=== PATIENT | female | born 1930 | race Caucasian/White ===

== ENCOUNTER → 2016-11-20 | Outpatient (CLI) | payer MEDICARE, BC ==
[~2016-11-20] MED LIST: ARICEPT5 MG PO; ASPIRIN EC81 MG PO; BACTROBAN N1 GM/TUBE TOP; DITROPAN5 MG PO; K-TAB ER20 MEQ PO; LASIX20 MG PO; LIPITOR80 MG PO; LOPRESSOR25 MG PO; NORVASC10 MG PO; PRILOSEC20 MG PO; PROAIR HFA8.5 GM INH; TYLENOL325 MG PO; VITAMIN D3 COM1 EACH PO; [UNRECOGNIZED DRUG - OTHER] OPHTH
== END | disposition disaster alternative care site (69) ==
LOC: GRAD 12:52
DX: I65.29 Occlusion and stenosis of unspecified carotid artery (principal); I65.21 Occlusion and stenosis of right carotid artery
CPT/HCPCS: Q9967

== ENCOUNTER 2016-12-07 10:00 | Inpatient (IN) | payer MEDICARE, BC ==
[~2016-12-07] VITALS: Ht 165.1 cm; Wt 90.5 kg
--- NOTE | ~2016-12-07 | OR ---
[facility] AGE: 86 Y [address] ROOM: [place] [address] [facility] ADMIT DATE: 12/14/2016 OR/Procedure Report DISCHARGE DATE: FAMILY PHYSICIAN: Shivam Plaza MD ATTENDING PHYSICIAN: AUSTYN ALEXIS SURGEON: Austyn Alexis MD VAMP THROATER: DATE OF PROCEDURE: 12/14/2016 PREOPERATIVE DIAGNOSIS: High-grade right internal carotid artery stenosis. POSTOPERATIVE DIAGNOSIS: High-grade right internal carotid artery stenosis. PROCEDURE: Right carotid endarterectomy with bovine pericardial patch. COMMERCIAL ENERGY RATER: Chante Garcia, nurse practitioner. She provided retraction as well as wound closure. ANESTHESIA: General. ESTIMATED BLOOD LOSS: 100 mL. OPERATIVE FINDINGS: High-grade heavily calcified lesion, near occlusive. DESCRIPTION OF PROCEDURE: The patient was brought to the operating room, placed supine on the operating table, prepped and draped in a sterile manner. Preop time-out was performed. The patient received preoperative antibiotics. We made a standard incision along the anterior border of the right sternocleidomastoid, transected the platysma, dissected out the internal jugular, identified the facial vein, which was ligated and transected. Dissected out the common, external, and internal carotid arteries. We gave 5000 units of heparin. We clamped on all 3 major arteries and performed a back pressure on the internal, which showed adequate pressure. We then made an arteriotomy from the common to the internal. We then removed the plaque in its entirety. We then patched it with a bovine pericardial patch using two 6- 0 Bonesteel running sutures. We then removed the clamps from the external and the common, waited 10 heartbeats, and removed the clamp from the internal. Any bleeding sites were repaired with interrupted Prolene. Hemostasis was achieved with protamine reversal as well as thrombin locally in the wound. Deep layers were closed with 2-0 and 3-0 Vicryl. Skin was closed with running 4-0 Monocryl. The patient tolerated the procedure well and transferred to recovery room and up to the floor. [facility] AGE: 86 Y [address] ROOM: [place] [address] LOCATION: [facility] ADMIT DATE: 12/14/2016 OR/Procedure Report DISCHARGE DATE: FAMILY PHYSICIAN: Shivam Plaza MD ATTENDING PHYSICIAN: AUSTYN ALEXIS AUSTYN ALEXIS MD FKM/modl /[id number] d: 12/14/162022 t: 12/21/16 1720, OPERATIVE SUMMARY
--- NOTE | ~2016-12-07 | PUL ---
PATIENT'S NAME: KT STINSON [facility] AGE: 86 Y [address] ROOM: [address] [place] [address] LOCATION: GPCU ADMIT DATE: 12/14/2016 Pulmonary DISCHARGE DATE: 12/20/2016 FAMILY PHYSICIAN: Shivam Plaza MD ATTENDING PHYSICIAN: Austyn Lazcano NAME OF PROCEDURE: Bedside Spirometry DATE OF PROCEDURES: December 18, 2016 TECH: Hanh, SNAKE CHARMER REASON FOR EXAM: Shortness of breath PROCEDURES PERFORMED: Spirometry without bronchodilator assessment. RESULTS: Multimedia Production Assistant comment, the patient is slightly confused and had difficulty with understanding the maneuvers. Spirometry showed FVC was 0.98 L, 39% of predicted; FEV1 was 0.76 L, 41% of predicted. FEV1/FVC was 78%. IMPRESSION: Both FEV1 and FEC and decreased with normal FEV1/FVC ratio signifying no airflow obstruction, but further assessment with lung volume measurements should be done to rule out restrictive changes. MD MARTHA ALMONTE/debby /[id number] dtt: 12/25/16 1426 SUSAN MEENAKSHI dtd: 12/22/16 0811
--- NOTE | ~2016-12-07 | DS ---
PATIENT'S NAME: KT STINSON [facility] AGE: 86 Y [address] ROOM: [address] [place], [place] [address] LOCATION: GPCU ADMIT DATE: 12/14/2016 Discharge Summary DISCHARGE DATE: 12/20/2016 FAMILY PHYSICIAN: Shivam Plaza MD ATTENDING PHYSICIAN: Austyn Lazcano FINAL DIAGNOSIS: Right internal carotid artery high-grade stenosis. SECONDARY DIAGNOSES: 1. Acute hypoxic respiratory failure. 2. Acute diastolic congestive heart failure. 3. Essential hypertension. 4. Chronic obstructive pulmonary disease with nocturnal hypoxia. 5. Obesity. 6. History of aortic valve replacement. 7. History of coronary artery disease. PROCEDURES: Right carotid endarterectomy with bovine patch on 12/14/[address] Lazcano. CONSULTATIONS: Hospitalist for medical management. HOSPITAL COURSE: This is an 86-year-old female admitted to [facility] on 12/14/2016 after elective right carotid endarterectomy with bovine patch. The patient with known asymptomatic high-grade right internal carotid artery stenosis diagnosed on CT angiogram. See the patient history and physical for full patient details. The patient tolerated the procedure well and woke up in the operating room without neurological deficits. While in recovery, the patient complained of difficulty breathing and received DuoNeb treatment. After recovery, she was admitted to PCU for monitoring of telemetry, vitals, labs, oxygen saturation, surgical site, pain management, medication administration, and nursing assistance. Hospitalists were consulted for medication management. The patient was placed on BiPAP on PCU for hypoxia. Chest x-ray and 2D echo also obtained for hypoxia. The chest x-ray impression cardiomegaly and mild pulmonary venous hypertension. No evidence of acute pulmonary edema. Doubt pneumonia although the left diaphragm is not particularly well seen. Echo impression hyperdynamic LV systolic function. Estimated left ventricular ejection fraction is 70% to 75%. Normal right ventricle structure and function. [id number] mitral valve stenosis. Well-seated bioprosthetic aortic valve with normal velocities and no appreciable regurgitation. Mildly dilated left atrium with evidence of elevated left ventricular filling pressures. Moderate concentric left ventricular hypertrophy. On postop day #1, the patient neurologically intact without deficits and neck incision clean, dry, and intact without hematoma. The patient continued on 6 L per nasal cannula. She is encouraged to use PATIENT'S NAME: KT STINSON [facility] AGE: 86 Y [address] ROOM: [address] [place], [place] [address] LOCATION: GPCU ADMIT DATE: 12/14/2016 Discharge Summary DISCHARGE DATE: 12/20/2016 FAMILY PHYSICIAN: Shivam Plaza MD ATTENDING PHYSICIAN: Austyn Lazcano incentive spirometry and CPAP at night was initiated. She also received albumin, Bumex, and potassium replacement. On postop day #2, a repeat chest x- ray PA and lateral was obtained. Impression deeper inspiration with clear lungs. Suspect some degree of COPD with parenchymal scarring. Changes of previous cardiac surgery. No congestive heart failure or pneumonia. The patient was started on IV Lasix drip. She was placed on a fluid restriction. Tate catheter was inserted for strict intake and output. On postop day #3, the patient continued to have improvement in oxygen demands. On postop day #4, her Lasix drip was discontinued and she was started on p.o. Lasix. PT and OT began working with the patient. On postop day #5, her Tate was discontinued and the patient continued with breathing treatments, DuoNeb, and albuterol. An overnight trend ox and bedside spirometry were ordered. The patient was up ambulating in the cooper without difficulty or shortness of breath. On postop day #6, the patient was found in a stable condition to be discharged home. She was setup with home oxygen. Trend ox results are as followed, the patient has evidence of significant nocturnal hypoxia and would qualify for supplemental oxygen as per Medicare criteria. However, because of severity of nocturnal hypoxia with elevated desaturation index, a sleep study would be recommended at this time. Bedside spirometry results are as followed, both FEV1 and FVC decreased with normal FEV1/FVC ratio signifying no airflow obstruction, but further assessment with lung volume measurements should be done to rule out restrictive changes. FVC is 0.98 L or 39% of predicted. FEV1 was 0.76 L or 41% of predicted. FEV1/FVC was 78%. DISCHARGE ORDERS: The patient is to be discharged to home with the assistance of Home Health. She is to continue on her diet as previous. She is to avoid heavy-lifting or driving for 2 weeks. She is to follow up with Chante Garcia APRN in [facility] on 01/02/2017. She is to follow up with Dr. Pinto at [facility] on 01/03/2017. She is to leave her incision open to air. She is to report any signs or symptoms of infection including redness, swelling, fevers, drainage, or chills. She is to report any symptoms consistent with TIA or stroke. DISCHARGE MEDICATIONS: 1. Norvasc 10 mg p.o. daily. 2. Aricept 5 mg p.o. every night at bedtime. 3. Aspirin 81 mg p.o. daily. 4. Lipitor 40 mg p.o. daily at bedtime. 5. HypoTears eyedrops 1 to 2 drops ophthalmic everyday as needed dry eyes. 6. Lasix 40 mg p.o. daily. 7. Lasix 20 mg p.o. daily at noon. 8. Lopressor 25 mg p.o. twice daily. 9. Bactroban nasal 2% ointment topical application 3 times daily to affected areas. 10. Prilosec 20 mg p.o. daily. PATIENT'S NAME: KT STINSON [facility] AGE: 86 Y [address] ROOM: [place] [address] [facility] AD[facility]: 12/14/2016 Discharge Summary DISCHARGE DATE: 12/20/2016 FAMILY PHYSICIAN: Shivam Plaza MD ATTENDING PHYSICIAN: Austyn Lazcano 11. Ditropan 5 mg p.o. twice daily. 12. Potassium chloride 20 mEq p.o. daily. 13. Tylenol 325 mg p.o. every 4 hours as needed pain. 14. Vitamin D3 tablets p.o. daily. 15. Albuterol 2 puffs to take 4 times daily as needed every 2 hours shortness of breath. DISPOSITION: The patient is discharged home in stable condition. She is to follow discharge orders as prescribed. Education about discharge including oxygen, home health, medications, prescriptions, wound care, diet , activity, and followup appointments given to the patient. The patient verbalized understanding of the plan and had no further questions or concerns. She is to follow discharge orders as prescribed. CHAN ROBLEDO MD TO/sandra /[id number] d: 12/28/16 0339 t: 12/29/16 1103, DISCHARGE SUMMARY
--- NOTE | ~2016-12-07 | PUL ---
PATIENT'S NAME: KT STINSON [facility] AGE: 86 Y [address] ROOM: [address] [address] LOCATION: GPCU ADMIT DATE: 12/14/2016 Pulmonary DISCHARGE DATE: 12/20/2016 FAMILY PHYSICIAN: Shivam Plaza MD ATTENDING PHYSICIAN: Austyn Lazcano NAME OF PROCEDURE: Overnight Pulse Oximetry DATE OF PROCEDURE: December 19, 2016 REASON FOR EXAM: Nocturnal hypoxemia RESULTS: The procedure was performed on room air. The recording time was 9 hours and 9 minutes, with a total valid sampling time of 9 hours and 9 minutes. Highest pulse was 97, lowest pulse was 70, with a mean pulse of 83. Highest SpO2 was 95%, lowest SpO2 was 77%, with a mean SpO2 of 87.2%. The three longest continuous times with saturation below 88% where, 47 minutes and 32 seconds, 31 minute and 48 seconds, and 16 minutes and 8 seconds. The desaturation event index was elevated at 13.4. IMPRESSION: The patient has evidence of significant nocturnal hypoxia and would qualify for supplemental oxygen as per Medicare criteria. However because of the severity of nocturnal hypoxia with an elevated desaturation event index a sleep study would be recommended at this time. MD MARTHA ALMONTE/debby /[id number] dtt: 12/25/16 1429 SUSAN MEENAKSHI dtd: 12/22/16 0944
--- NOTE | ~2016-12-07 | ECHO ---
Transthoracic Echocardiography Report (TTE) Demographics Patient Name KT STINSON Date of Study 12/14/2016 E Patient Number [id number] Visit Number [id number] Date of 1930 Room Number [address] Gender Female Number Age 86 year(s) Referring Neno Zaman MD Metal Drawer Kathy Davis RDCS, Physician RVT, RDMS, DELI DEPARTMENT MANAGER Physician Interpreting Mili Desai MD Head Still Operator Physician Supervising Ordering Gebremicheal Kyler SWANN/MLP Physician Nurse Stress Professional Driver Conclusions Summary Very technically challenging exam due to lung interference and suboptimal positioning. Hyperdynamic LV systolic function. The estimated left ventricular ejection fraction is 70-75%. Normal right ventricle structure and function. Mild to moderate mitral valve stenosis. The 21 mm Araujo bioprosthetic valve is suboptimally visualized. Well seated bioprosthetic aortic valve with normal velocities and no appreciable regurgitation. Mildly dilated left atrium with evidence of elevated left ventricular filling pressures. Moderate concentric left ventricular hypertrophy. Procedure Type of Study TTE procedure:2D Echocardiogram, M-Mode, Doppler , Color Doppler. Procedure Date Date: 12/14/2016 Start: 02:54 PM Study Location: Inpatient Portable Technical Quality: Poor visualization due to lung interference. Indications:Dyspnea/SOB. Additional Indications:CHF, AVR Appropriate Use Criteria: 9 Patient Status: Routine HR: 71 bpm BP: 134/53 mmHg M-Mode/2D Measurements LV Diastolic Dimension: 3.37 cm LV Systolic Dimension: 1.76 cm LV Septum Diastolic: 1.3 cm LV PW Diastolic: 1.26 cm Cardiac Output: 6.01 l/min LA volume: 75 ml RV Diastolic Dimension: 2.47 cm LVOT: 1.8 cm EF Estimated: 70 % LVOT VTI: 33.3 cm LV Stroke volume: 84.7 ml RV Mid: 2.2 cm RV Length: 6.3 cm TAPSE: 2.1 cm Doppler Measurements AV Peak Velocity: 2.24 m/s MV Peak E-Wave: 0.9 m/s AV Peak Gradient: 20.07 mmHg MV Peak A-Wave: 1.51 m/s AV Mean Gradient: 11 mmHg MV E/A Ratio: 0.59 LVOT Peak Velocity: 1.32 m/s MV P1/2t: 155 msec MV Deceleration Time: 581 msec E' Lateral Velocity: 0.05 m/s PV Peak Velocity: 0.93 m/s PV Peak Gradient: 3.46 mmHg A' Lateral Velocity: 0.11 m/s Findings Left Ventricle Hyperdynamic left ventricular systolic function with paradoxical septal motion due to prior open heart surgery. The left ventricle is normal in size . Diastolic assessment reveals Grade I diastolic dysfunction. Moderate concentric left ventricular hypertrophy. E/e' of 18 is consistent with elevated left ventricular filling pressures. Right Ventricle Normal right ventricle structure and function. Left Atrium The left atrium is mildly dilated by LA volume index measurement. Right Atrium Normal right atrial size. Mitral Valve Severe calcification of the mitral valve. Severe mitral annular calcification. Mild to moderate mitral valve stenosis. The mean gradient is 5 mmHg. The area is (1.42 - 1.67 cm2.). Aortic Valve The 21 mm Araujo bioprosthetic valve is suboptimally visualized. It appears well seated with normal velocity parameters. There is no appreciable regurgitation. Tricuspid Valve The tricuspid valve is not well visualized. Cannot estimate pulmonary pressures due to insufficient tricuspid regurgitant jet. Pulmonic Valve Pulmonic valve is not well seen. Pericardial Effusion No evidence of pericardial effusion. Miscellaneous Suboptimal subcostal window to evaluate the IVC and interatrial septum. Pleural Effusion No evidence of pleural effusion. Signature dtt: VEENA RAPP dtd: 12/14/16 8011 Physician Self Edit
[~2016-12-07 10:00] MED LIST changes: -PROAIR HFA8.5 GM INH; -VITAMIN D3 COM1 EACH PO
[2016-12-07] MEDS ORDERED: VITAMIN D3 COM1 EACH PO (10:01)
[2016-12-14 06:33] LABS: BASOPHIL # 0.1 K/uL (0.0-0.2); BASOPHIL % 0.7 %; EOSINOPHIL # 0.2 K/uL (0.0-0.5); EOSINOPHIL % 2.1 %; HEMATOCRIT 38.1 % (30.0-46.0); HEMOGLOBIN 12.4 g/dL (10.0-15.0); IMMATURE GRANULOCYTE % 0.1 %; LYMPHOCYTE # 4.7 K/uL (0.8-4.0); LYMPHOCYTE % 55.3 %; MCH 28.3 pg (27.0-34.0); MCHC 32.5 gm/dL (32.0-36.5); MONOCYTE # 0.7 K/uL (0.0-1.0); MONOCYTE % 8.1 %; MPV 10.5 fl (9.4-12.4); NEUTROPHIL # (ANC) 2.9 K/uL (1.8-7.8); NEUTROPHIL % 33.7 %; NRBC % 0 /100WBC (0-0.00); PLATELET COUNT 190 K/uL (150-450); RBC 4.38 M/uL (3.00-5.00); RDW-CV 15.6 % (11.9-14.6); WBC 8.5 K/uL (4.0-11.0)
[2016-12-14 06:50] LABS: ALBUMIN 2.9 gm/dL (3.5-5.0); ANION GAP 11.7 (10.0-19.0); CALCIUM 8.4 mg/dL (8.5-10.5); CREATININE 1.2 mg/dL (0.5-1.1); POTASSIUM 3.7 mMol/L (3.7-5.1); TOTAL BILIRUBIN 0.7 mg/dL (0.0-1.5)
--- NOTE | 2016-12-14 16:25 | NUR ---
Significant Event: Alert and disoriented to time. Forgetful. [id number]. R) artline intact with good wave foarm. P-60s. Afebrile. Currently on Hiflow at 75% FIO2. Basline patient is on room air. Tachypnic at times. L) AC infusing d51/2 with 20meq of KCL running at 75ml/hr. 1 Large incotinence since surgery. Has not been up since surgery yet. 1-2+ generalized edema. thready diastal pulses. Prophylaytic Anef. R) carotid site covered with primapore, c/d/i. Family at [facility].
[2016-12-14 16:28] LABS: ANION GAP 10.3 (10.0-19.0); CREATININE 1.3 mg/dL (0.5-1.1); POTASSIUM 4.3 mMol/L (3.7-5.1)
[2016-12-14 18:11] LABS: ALBUMIN 2.9 gm/dL (3.5-5.0); MAGNESIUM 2.2 mg/dL (1.8-2.6); PHOSPHORUS 3.4 mg/dL (2.5-4.9)
[2016-12-15 04:02] LABS: BASOPHIL % 0.1 %; HEMATOCRIT 37.6 % (30.0-46.0); HEMOGLOBIN 11.9 g/dL (10.0-15.0); IMMATURE GRANULOCYTE % 0.2 %; LYMPHOCYTE # 4.3 K/uL (0.8-4.0); LYMPHOCYTE % 34.2 %; MCHC 31.6 gm/dL (32.0-36.5); MCV 88.5 fl (83.0-98.0); MONOCYTE # 0.5 K/uL (0.0-1.0); MONOCYTE % 4.3 %; MPV 11.3 fl (9.4-12.4); NEUTROPHIL # (ANC) 7.7 K/uL (1.8-7.8); NEUTROPHIL % 61.2 %; NRBC % 0 /100WBC (0-0.00); PLATELET COUNT 167 K/uL (150-450); RBC 4.25 M/uL (3.00-5.00); RDW-CV 15.5 % (11.9-14.6); WBC 12.5 K/uL (4.0-11.0)
[2016-12-15 04:17] LABS: ALBUMIN 2.7 gm/dL (3.5-5.0); ANION GAP 10.3 (10.0-19.0); CALCIUM 7.9 mg/dL (8.5-10.5); MAGNESIUM 2.2 mg/dL (1.8-2.6); PHOSPHORUS 3.3 mg/dL (2.5-4.9); POTASSIUM 4.3 mMol/L (3.7-5.1)
--- NOTE | 2016-12-15 06:21 | NUR ---
Patient drowsy oriented to self and place but not time. Will wake up to voice. 2 assist to bedside commode. VSS except on 6L NC. Lungs clear/diminished. Bowel sounds hypoactive. Incont of urine. IV LT AC and Rt hand saline locked. No complaints. ART line DC'd. Dressing CDI. NSR to bradycardia at times. Possible home today.
--- NOTE | 2016-12-15 16:41 | NUR ---
Introduced self and role of care management to pt. She stated her Jose Manuel and daughter left to get some food. She lives in [place] with her and is up with a walker. She states he helps her out most of the time by setting up her meds, etc. At this time she plans on returning home but if something different will need to talk with her family. WIll continue to follow.
--- NOTE | 2016-12-15 17:16 | NUR ---
Significant Event: Alert and disoriented to time. Forgetful. VSS. Patient fluctuates from 4-6L throughout the day. Currently on 5L NC. L) AC and R) hand IVs saline locked. PAtient recived albumin IV x1 and will get Bumex 1mg IVP at 1730. Patient denies SOB. Up with 1A/walker. R) carotid site open to air, no complications. Pleasant and cooperative with cares. Family at bedside.
[2016-12-15 21:05] LABS: ALBUMIN 3.2 gm/dL (3.5-5.0); ANION GAP 10.6 (10.0-19.0); CREATININE 1.2 mg/dL (0.5-1.1); MAGNESIUM 2.2 mg/dL (1.8-2.6); PHOSPHORUS 2.9 mg/dL (2.5-4.9); POTASSIUM 3.6 mMol/L (3.7-5.1)
--- NOTE | 2016-12-16 01:18 | NUR ---
Significant Event:A/Ox2. Disoriented to time and forgetful. Per family this is baseline. Neuro assessments wnl. Oxygen remains at 5L/NC. Patient has periods of apnea when sleeping. Would benefit from a sleep study or overnight trend ox. Transfers 1 assist with walker and GB. K+3.4 at 2100 replaced with 40meq PO. Follow up:Continue to monitor respiratory status and wean oxygen.
--- NOTE | 2016-12-16 05:50 | NUR ---
Significant Event: ALERT AND DISORIENTED AT TIMES. FORGETFUL BUT IS ABLE TO FOLLOW DIRECTIONS APPROPRIATELY. VSS. PATIENTS O2 RANGES FROM 4-6L. PATIENT HAS BEEN ON 6L ALL NIGHT, POSSIBLE SLEEP APNEA. LUNGS CLEAR/DIMINISHED. BOWEL SOUNDS HYPOACTIVE. INCONT OF URINE FREQUENTLY. IV L)AC AND R)HAND BOTH SL. PATIENT HAD ALBUMIN INFUSION x1 AND BUMEX ON 12/15/16. K+ WAS 3.6 SO 40mEq ORAL K+ WAS GIVEN. 1 ASST WITH WALKER/GAIT BELT TO BATHROOM. R) CAROTID SITE OPEN TO AIR. NO COMPLICATIONS. Follow up: WILL CONTINUE TO MONITOR LABS AND INCREASED O2 NEEDS.
[2016-12-16 06:42] LABS: BASOPHIL # 0.1 K/uL (0.0-0.2); BASOPHIL % 0.5 %; EOSINOPHIL # 0.1 K/uL (0.0-0.5); HEMATOCRIT 37.4 % (30.0-46.0); HEMOGLOBIN 12.2 g/dL (10.0-15.0); IMMATURE GRANULOCYTE % 0.1 %; LYMPHOCYTE # 4.1 K/uL (0.8-4.0); LYMPHOCYTE % 44.4 %; MCH 28.4 pg (27.0-34.0); MCHC 32.6 gm/dL (32.0-36.5); MCV 87.2 fl (83.0-98.0); MONOCYTE # 0.9 K/uL (0.0-1.0); MONOCYTE % 9.2 %; MPV 11.1 fl (9.4-12.4); NEUTROPHIL # (ANC) 4.1 K/uL (1.8-7.8); NEUTROPHIL % 44.8 %; NRBC % 0 /100WBC (0-0.00); PLATELET COUNT 165 K/uL (150-450); RBC 4.29 M/uL (3.00-5.00); RDW-CV 15.6 % (11.9-14.6); WBC 9.2 K/uL (4.0-11.0)
[2016-12-16 06:52] LABS: ALBUMIN 3.1 gm/dL (3.5-5.0); ANION GAP 9.7 (10.0-19.0); CALCIUM 8.1 mg/dL (8.5-10.5); MAGNESIUM 2.3 mg/dL (1.8-2.6); PHOSPHORUS 2.5 mg/dL (2.5-4.9); POTASSIUM 3.7 mMol/L (3.7-5.1)
--- NOTE | 2016-12-16 20:12 | NUR ---
Significant Event: Patient is alert/oriented x3, very forgetful. Vital signs stable. Weaned down to 5L from 6L. Lasix drip started at 5 mg/hr. Tate catheter in place now. Patient denies any pain. Neuro checks have been within normal limits. Right CEA site is healing well. Follow up: Continue to monitor respiratory status.
[2016-12-17 03:31] LABS: BASOPHIL # 0.1 K/uL (0.0-0.2); BASOPHIL % 0.6 %; EOSINOPHIL # 0.1 K/uL (0.0-0.5); EOSINOPHIL % 1.4 %; HEMOGLOBIN 13.1 g/dL (10.0-15.0); IMMATURE GRANULOCYTE % 0.2 %; LYMPHOCYTE # 4.4 K/uL (0.8-4.0); LYMPHOCYTE % 47.3 %; MCH 28.2 pg (27.0-34.0); MCHC 32.8 gm/dL (32.0-36.5); MCV 86.2 fl (83.0-98.0); MONOCYTE # 0.8 K/uL (0.0-1.0); MONOCYTE % 8.5 %; MPV 11.4 fl (9.4-12.4); NEUTROPHIL # (ANC) 3.9 K/uL (1.8-7.8); NRBC % 0 /100WBC (0-0.00); PLATELET COUNT 173 K/uL (150-450); RBC 4.64 M/uL (3.00-5.00); RDW-CV 15.6 % (11.9-14.6); WBC 9.3 K/uL (4.0-11.0)
[2016-12-17 03:44] LABS: ANION GAP 9.3 (10.0-19.0); CALCIUM 8.4 mg/dL (8.5-10.5); POTASSIUM 3.3 mMol/L (3.7-5.1); TOTAL BILIRUBIN 1.3 mg/dL (0.0-1.5); TOTAL PROTEIN 7.3 g/dL (6.0-8.4)
--- NOTE | 2016-12-17 06:04 | NUR ---
Significant Event: Patient is alert and oriented. VSS on 5L. Lasix drip continues at 5. Potassium level 3.3. Potassium cloride 40 meq given x1. Check renal and mg at 0800 and call MD with results. Edema decreasing to LE. Patient calm and cooperative. Follow up:
[2016-12-17 08:26] LABS: ALBUMIN 3.1 gm/dL (3.5-5.0); ANION GAP 9.8 (10.0-19.0); CALCIUM 8.5 mg/dL (8.5-10.5); MAGNESIUM 2.3 mg/dL (1.8-2.6); PHOSPHORUS 3.5 mg/dL (2.5-4.9); POTASSIUM 3.8 mMol/L (3.7-5.1)
--- NOTE | 2016-12-17 19:53 | NUR ---
Significant Event: Patient is alert/oriented x3, forgetful at times. O2 weaned down to 4L now. Lasix drip continues at 5 mg/hr. Tate in place with 1775 mL UOP. Denies any pain. 1500 mL fluid restriction. Follow up: Continue to wean O2.
[2016-12-18 04:24] LABS: HEMATOCRIT 40.1 % (30.0-46.0); HEMOGLOBIN 13.3 g/dL (10.0-15.0); MCH 28.2 pg (27.0-34.0); MCHC 33.2 gm/dL (32.0-36.5); MCV 85.1 fl (83.0-98.0); MPV 10.7 fl (9.4-12.4); PLATELET COUNT 189 K/uL (150-450); RBC 4.71 M/uL (3.00-5.00); RDW-CV 15.4 % (11.9-14.6); WBC 10.6 K/uL (4.0-11.0)
[2016-12-18 04:41] LABS: ALK PHOS 91 IU/L (33-138); ANION GAP 9.4 (10.0-19.0); AST 13 IU/L (10-40); BLOOD UREA NITROGEN 29 mg/dL (6-24); CALCIUM 8.6 mg/dL (8.5-10.5); CHLORIDE 100 mMol/L (96-110); CO2 33 mMol/L (22-32); CREATININE 1.1 mg/dL (0.5-1.1); POTASSIUM 3.4 mMol/L (3.7-5.1); SODIUM 139 mMol/L (135-145); TOTAL BILIRUBIN 1.3 mg/dL (0.0-1.5); TOTAL PROTEIN 7.4 g/dL (6.0-8.4)
[2016-12-18 04:43] LABS: ALT < 10 IU/L (12-78)
[2016-12-18 04:55] LABS: ABSOLUTE NEUTROPHIL CT (ANC) 3.9 K/uL (1.8-7.8); BANDED NEUTROPHIL # 0.1 K/uL (0.0-0.1); BANDED NEUTROPHILS % 1 %; LYMPHOCYTE # 5.9 K/uL (0.8-4.0); LYMPHOCYTE % 56 %; MONOCYTE # 0.3 K/uL (0.0-1.0); SEGMENTED NEUTROPHIL # 3.8 K/uL (1.8-7.8); SEGMENTED NEUTROPHIL % 36 %
--- NOTE | 2016-12-18 07:24 | NUR ---
Significant Event: D/O to time, SBP 130/60s, HR 70-90s, 4L O2, lasix gtt continues at 5mg/hr, vuong had 1400 out, bactriban to neck incision, 1 assist, denies pain Follow up: continue to wean O2
--- NOTE | 2016-12-18 11:51 | NUR ---
A-SCREENED D/T LOS; S/P R)CAROTID ADMIT WT: 96.63 KG; CBW: 89.0 KG. HT: 65 IN. BMI: 32.6 PT ADMITTED WITH 1-2+ GENERALIZED EDEMA; ON IV LASIX, BUMEX. PER RN, EDEMA IS IMPROVED FROM ADMIT. SUSPECT THAT WT LOSS IS D/T CHANGE IN FLUID. LABS: NA 139, K+ 3.4, GLU 145, BUN 29, CENTRAL SUPPLY SUPERVISOR 1.1, ALB 3.0 MEDS: LASIX, PROTONIX, ARICEPT, SANCTURA, MVI, ZOFRAN, NORCO, MORPHINE, AND PRN BOWEL MEDS DIET RX: CARDIAC DIET W/1500 M FLUID RESTRICTION. PO INTAKE 50-100% EST NUTR NEEDS: 5205-2072 KCALS (15-20 KCALS/KG), 71-89 GM PROTEIN (0.8-1.0 GM/KG), AND FLUID PER MD D-NOT AT NUTRITION RISK; NO NUTRITION DX IDENTIFIED I-CONTINUE W/CURRENT DIET RX M/E-WILL F/U PO INTAKE, WT, AND POC IN 7-9 DAYS
--- NOTE | 2016-12-18 15:33 | NUR ---
Significant Event: ALERT, ORIENTED TO PERSON AND PLACE, FORGETFUL OF TIME. RE-ORIENTS WELL. O2 @ 1 L NC WITH SATS LOW 90'S. LASIX GTT DC'D. WILL START PO LASIX TOMORROW. PENALOZA PATENT, 875 ML UOP. PIV TO RIGHT AC SL'D. RIGHT NECK INCISION WITH EDGES APPROXIMATED, NO DRAINAGE NOTED. DENIES PAIN. UP WITH 1 ASSIST, GB AND WALKER. AMBULATED IN HALLS. FAMILY AT BEDSIDE. Follow up:
[2016-12-19 04:55] LABS: BASOPHIL % 0.4 %; EOSINOPHIL # 0.2 K/uL (0.0-0.5); EOSINOPHIL % 2.2 %; HEMATOCRIT 39.2 % (30.0-46.0); HEMOGLOBIN 12.8 g/dL (10.0-15.0); IMMATURE GRANULOCYTE % 0.3 %; LYMPHOCYTE # 4.6 K/uL (0.8-4.0); LYMPHOCYTE % 43.7 %; MCH 28.1 pg (27.0-34.0); MCHC 32.7 gm/dL (32.0-36.5); MCV 86.2 fl (83.0-98.0); MONOCYTE # 0.8 K/uL (0.0-1.0); MONOCYTE % 7.6 %; MPV 11.3 fl (9.4-12.4); NEUTROPHIL # (ANC) 4.9 K/uL (1.8-7.8); NEUTROPHIL % 45.8 %; NRBC % 0 /100WBC (0-0.00); PLATELET COUNT 177 K/uL (150-450); RBC 4.55 M/uL (3.00-5.00); RDW-CV 15.2 % (11.9-14.6); WBC 10.6 K/uL (4.0-11.0)
[2016-12-19 05:15] LABS: ALBUMIN 2.8 gm/dL (3.5-5.0); CALCIUM 8.6 mg/dL (8.5-10.5); CREATININE 1.1 mg/dL (0.5-1.1); TOTAL PROTEIN 6.9 g/dL (6.0-8.4)
--- NOTE | 2016-12-19 13:43 | NUR ---
Introduced self and role of care management to pt again and her . He states plan will be home either later today or in the am. I discussed dc plans and if home is the plan or if I needed to look somewhere and he states he seen her up walking and plan will be home. She has a walker she uses at home as well and for the most part he is home with her. They have somone that comes once a week who cooks and cleans. I did ask about [facility]hc thru her Medicare for more of a skilled need of therapy and maybe a bath aid. He thought that may not be bad for a short time. He is aware that Rakesh Gasca comes to [place]. He states he is on a couple boards and one is the [employer]. I explained I would look into it and have Altagracia with [facility] come talk with him as well and he agreed. I did call Altagracia JIMENEZ and she will be up. WIll continue to follow.
--- NOTE | 2016-12-19 17:35 | NUR ---
Significant Event:pt has been up in the chair up a & o x 4, Pal WNL. o2 weaned down to 1L. D/c vuong at 1230. Hasn't voided yet. Sarbjit is good. Incision looks good. Follow up:pt probably home tomorrow
--- NOTE | 2016-12-20 03:48 | NUR ---
Patient is alert and oriented, but has been confused at times this visit. Did a trend ox overnight and will have an ambulatory sat check in AM. Has voided once this shift after removal of vuong. R) AC is saline locked. She has a poor oral intake and only had 100ml in for this shift. Has rested off and on. Possible discharge today.
[2016-12-20 06:35] LABS: BASOPHIL % 0.3 %; EOSINOPHIL # 0.2 K/uL (0.0-0.5); EOSINOPHIL % 2.2 %; HEMATOCRIT 37.9 % (30.0-46.0); HEMOGLOBIN 12.4 g/dL (10.0-15.0); IMMATURE GRANULOCYTE % 0.2 %; LYMPHOCYTE # 3.9 K/uL (0.8-4.0); LYMPHOCYTE % 44.2 %; MCH 28.1 pg (27.0-34.0); MCHC 32.7 gm/dL (32.0-36.5); MCV 85.9 fl (83.0-98.0); MONOCYTE # 0.7 K/uL (0.0-1.0); MONOCYTE % 7.4 %; MPV 10.9 fl (9.4-12.4); NEUTROPHIL # (ANC) 4.1 K/uL (1.8-7.8); NEUTROPHIL % 45.7 %; NRBC % 0 /100WBC (0-0.00); PLATELET COUNT 171 K/uL (150-450); RBC 4.41 M/uL (3.00-5.00); RDW-CV 15.3 % (11.9-14.6); WBC 8.9 K/uL (4.0-11.0)
[2016-12-20 06:50] LABS: ALBUMIN 2.7 gm/dL (3.5-5.0); ANION GAP 8.9 (10.0-19.0); CALCIUM 8.5 mg/dL (8.5-10.5); CREATININE 0.9 mg/dL (0.5-1.1); POTASSIUM 3.9 mMol/L (3.7-5.1); TOTAL PROTEIN 6.9 g/dL (6.0-8.4)
[2016-12-20 06:53] LABS: TOTAL BILIRUBIN 1.3 mg/dL (0.0-1.5)
[2016-12-20] MEDS ORDERED: PROAIR HFA8.5 GM INH (10:48)
--- NOTE | 2016-12-20 13:20 | NUR ---
I did review IMM with . He states they are ready to go and son is here. She only need the oxygen at nite and [facility]HC is arranged and can get out this weekend per Altagracia JIMENEZ, orders were faxed. WIll assist as needed.
--- NOTE | 2016-12-20 17:10 | NUR ---
Significant Event: PATIENT DISCHARGED TO HOME ON 12/20/2016 AT 1230. VSS. DISCHARGE TEACHING DONE WITH PATIENT AND . PATIENT FORGETFUL, VERBALIZES UNDERSTANDING. PATIENT'S WALKER SENT WITH PATIENT ALONG WITH ALL PERSONAL BELONGINGS. Follow up: DISCHARGED 1230 ON 12/20/2016
== END 2016-12-20 12:45 | disposition disaster alternative care site (69) | DRG 37 ==
LOC: GPCU 12-14 05:26
PROVIDERS: Internal Medicine; ADMIT Surgery Vascular Surgery
PROC: 03UK0JZ Supplement Right Internal Carotid Artery with Synthetic Substitute, Open Approach (ICD-10-PCS; principal; 2016-12-14)
PROC: 03CK0ZZ Extirpation of Matter from Right Internal Carotid Artery, Open Approach (ICD-10-PCS; principal; 2016-12-14)
DX: I65.21 Occlusion and stenosis of right carotid artery (principal); I50.31 Acute diastolic (congestive) heart failure; J96.01 Acute respiratory failure with hypoxia; E78.5 Hyperlipidemia, unspecified; F03.90 Unspecified dementia, unspecified severity, without behavioral disturbance, psychotic disturbance, mood disturbance, and anxiety; G47.33 Obstructive sleep apnea (adult) (pediatric); I25.10 Atherosclerotic heart disease of native coronary artery without angina pectoris; I10 Essential (primary) hypertension; E66.9 Obesity, unspecified; Z68.34 Body mass index [BMI] 34.0-34.9, adult
CPT/HCPCS: J0690; J1100; J1644; J1650; J1940; J2001; J2405; J2720; J3010; J3480; J7030; J7040; J7050; J7120; P9047